=== PATIENT | female | born 1975 | race Hispanic/Latino ===

== ENCOUNTER 2025-08-24 10:07 | Emergency (ER) | payer BC ==
[~2025-08-24] VITALS: Ht 154.9 cm; Wt 77.1 kg
[~2025-08-24 10:07] MED LIST: DOXY100C5 PO
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
--- NOTE | 2025-08-24 10:49 | HMCIMG ---
EXAM: CR left Rib, 5 View. CLINICAL HISTORY: trauma COMPARISON: None provided. FINDINGS: LUNGS: The visualized lungs appear essentially clear. PLEURAL SPACES: No pneumothorax evident. No pleural effusions. BONES: No visible acute rib fracture. IMPRESSION: No visible acute rib fracture. No pneumothorax. /[place]
[2025-08-24] MEDS: LIDOCAINE 4% ADH..PATCH TP ONE (11:02)
[2025-08-24 11:48] VITALS: BP 124/79; PULSE 76; RESP 18; TEMP 97.8; O2SAT 98
== END 2025-08-24 11:52 | disposition home or self-care (01) ==
LOC: EDH 10:07
DX: S20.211A Contusion of right front wall of thorax, initial encounter (principal); Z79.899 Other long term (current) drug therapy; Z90.49 Acquired absence of other specified parts of digestive tract; W22.03XA Walked into furniture, initial encounter; Y93.89 Activity, other specified; Y92.89 Other specified places as the place of occurrence of the external cause; Y99.8 Other external cause status
CPT/HCPCS: 99284; 71101; 96372; J1885